=== PATIENT | female | born 1985 | race Hispanic/Latino ===

== ENCOUNTER 2024-12-27 15:13 | Emergency (ER) | payer OTHER ==
[2024-12-27 16:01] LABS: Absolute Lymphocytes (CBC) 1.1 K/uL (0.7-4.9); Hematocrit 37.7 % (36.0-45.0); Hemoglobin 12.5 g/dL (12.0-15.0); MCH 31.2 pg (27.0-35.0); MCHC 33.3 g/dL (32.0-36.0); MCV 93.7 fL (80-100); MPV 9.1 fL (7.6-11.3); Nucleated RBC Absolute Count 0.0 (0-0); Nucleated Red Blood Cells % 0.2 % (0-0); RBC Red Blood Cell Count 4.02 M/uL (3.86-4.86); White Blood Count 6.10 thou/uL (4.3-10.9)
[2024-12-27 16:05] LABS: Urine Culture Reflex Order REFLEXED; Urine Microscopic Reflex YN ORDER UMIC
[2024-12-27 16:21] LABS: ALT/SGPT 32 U/L (13-56); AST/SGOT 17 U/L (15-37); Albumin 3.4 g/dL (3.4-5.0); Albumin/Globulin Ratio 0.7 (1.1-1.8); Alkaline Phosphatase 97 U/L (45-117); Anion Gap 6.6 mEq/L (5.0-15.0); BUN Blood Urea Nitrogen 10 mg/dL (7-18); Globulin 4.6 g/dL (2.3-3.5); Glucose Level 91 mg/dL (74-106); Potassium 3.6 mEq/L (3.5-5.1)
--- NOTE | 2024-12-27 16:22 | RAD REPORT ---
EXAM: CT brain without contrast HISTORY: WEAKNESS COMPARISON: None TECHNIQUE: Multiple contiguous axial images were obtained and a CT of the brain without contrast. Sag ittal and coronal reformats were performed. One or more of the following dose reduction techniques were used: Automated exposure control, adjust ment of the mA and/or kV according to patient size, and/or iterative reconstruction. FINDINGS: No evidence of hydrocephalus, intracranial hemorrhage, or extra-axial fluid collection. The brain is normal in morphology. No evidence of midline shift or areas of brain edema. The calvarium is intact. The visualized paranasal sinuses and mastoid air cells are essentially clear . IMPRESSION: No evidence of acute intracranial abnormality.
[2024-12-27] MEDS ORDERED: NA CHLORIDE 0.9% 1,000 ML ONE (16:25)
[2024-12-27 16:28] LABS: Troponin High Sensitivity < 3.0 pg/mL (<58.9)
--- NOTE | 2024-12-27 16:49 | RAD REPORT ---
EXAMINATION: ONE VIEW CHEST XR CLINICAL INDICATION: Left Arm Pain TECHNIQUE: Frontal chest projection is submitted. Examination is limited by patient positioning and t echnique. COMPARISON: No prior exam. FINDINGS: The lungs are well inflated and clear. The heart is upper limit of normal in size. No displaced fract ures identified. IMPRESSION: No acute intrathoracic abnormalities.
[2024-12-27] MEDS ORDERED: CEFTRIAXONE 1000 MG/VIAL ONE (17:13)
[2024-12-27] MEDS ORDERED: NA CHLORIDE 0.9% 50 ML ONE (17:14)
--- NOTE | 2024-12-27 17:40 | EDPHYS ---
Physician Documentation [facility] Name: Angelic Brown Age: 39 yrs Sex: Female : 1985 Arrival Date: 12/27/2024 Time: 15:13 Bed 19 Private MD: ED Physician Aurea Allen HPI: 12/27 18:20 This 39 yrs old Female presents to ER via Ambulatory with complaints of Arm dr5 Pain - left arm and hand pain. 18:20 Onset: The symptoms/episode began/occurred 2 week(s) ago. Patient is a 39-year-old dr5 female with history of depression coming in with 2 weeks of generalized pain, left arm pain, suprapubic abdominal pain, dysuria. Patient reports that she seen her regular doctor and had blood work completed and has appointment next week. Patient denies fever, numbness, tingling during initial exam.. Historical: - Allergies: 15:33 No Known Allergies; ap3 - Home Meds: 15:33 sertraline oral [Active]; ap3 - PMHx: 15:33 Depressive disorder; ap3 - Immunization history:: Adult Immunizations unknown. - Infectious Disease History:: Denies. - Social history:: Smoking status: Patient denies any tobacco usage or history of. Patient uses alcohol, occasionally. ROS: 18:20 Constitutional: as per hpi dr5 Exam: 18:20 Constitutional: This is a well developed, well nourished patient who is awake, alert, dr5 and in no acute distress. Head/Face: Normocephalic, atraumatic. Eyes: Pupils equal round and reactive to light, extra-ocular motions intact. Lids and lashes normal. Conjunctiva and sclera are non-icteric and not injected. Cornea within normal limits. Periorbital areas with no swelling, redness, or edema. Neck: Trachea midline, no thyromegaly or masses palpated, and no cervical lymphadenopathy. Supple, full range of motion without nuchal rigidity, or vertebral point tenderness. No Meningismus. Chest/axilla: Normal chest wall appearance and motion. Nontender with no deformity. No lesions are appreciated. Cardiovascular: Regular rate and rhythm with a normal S1 and S2. Normal PMI, no JVD. No pulse deficits. Respiratory: Lungs have equal breath sounds bilaterally, clear to auscultation. No rales, rhonchi or wheezes noted. No increased work of breathing, no retractions or nasal flaring. Back: No spinal tenderness. No costovertebral tenderness. Full range of motion. Skin: Warm, dry with normal turgor. Normal color with no rashes, no lesions, and no evidence of cellulitis. MS/ Extremity: Pulses equal, no cyanosis. Neurovascular intact. Full, normal range of motion. Neuro: Awake and alert, GCS 15, oriented to person, place, time, and situation. Cranial nerves II-XII grossly intact. Motor strength 5/5 in all extremities. Sensory grossly intact. Cerebellar exam normal. Normal gait. 18:20 Abdomen/GI: Inspection: abdomen appears normal, Bowel sounds: normal, Palpation: mild abdominal tenderness, in the suprapubic area, Vital Signs: 15:32 BP 150 / 82; Pulse 78; Resp 17; Temp 98.2; Pulse Ox 100% ; Weight 68.04 kg; Height 5 ap3 ft. 2 in. ; 16:02 BP 159 / 84; Pulse 76; Resp 16; Pulse Ox 98% ; dd2 17:00 BP 146 / 75; Pulse 75; Resp 16; Pulse Ox 99% on R/A; dd2 18:02 BP 142 / 77; Pulse 73; Resp 16; Pulse Ox 99% on R/A; dd2 15:32 Body Mass Index 27.44 (68.04 kg, 157.48 cm) ap3 NIH Stroke Scale Scores: 18:20 NIHSS Score: 0 dr5 [place] Coma Score: 15:58 Eye Response: spontaneous(4). Verbal Response: oriented(5). Motor Response: obeys dd2 commands(6). Total: 15. MDM: 15:16 Medical Screening Exam initiated dr5 18:20 Differential Diagnosis UTI, intracranial hemorrhage, anemia, acute kidney injury. Data dr5 reviewed: vital signs, nurses notes, lab test result(s), CBC, white blood cell count, hemoglobin, hematocrit, platelets, electrolytes, sodium, potassium, chloride, serum bicarbonate, BUN, creatinine, serum glucose, urinalysis, bacteruria, radiologic studies, CT scan. Data reviewed: radiologic studies, plain films. Consideration of Admission/Observation Escalation of care including admission/observation considered. Escalation considered patient found to have intracranial hemorrhage. I considered the following discharge prescriptions or medication management in the emergency department I discussed and recommended Over The Counter medications, Medications were administered in the Emergency Department. See MAR. Independent interpretation of the following test(s) in the Emergency Department X-Ray: My interpretation is Independent interpretation of x-ray does not reveal infiltrates concerning for pneumonia. Historians other than the Patient: Daughter/Son: Daughter. Family Member: Sister. Care significantly affected by the following chronic conditions: Depression. Care significantly affected by the following Social Determinants of Health: Poor access to healthcare and/or lack of insurance, Poor access to transportation, Problems related to employment. Counseling: I had a detailed discussion with the patient and/or guardian regarding the historical points, exam findings, and any diagnostic results supporting the discharge/admit diagnosis, the presence of at least one elevated blood pressure reading (>120/80) during this emergency department visit, lab results, radiology results, the need for outpatient follow up, for definitive care, a family practitioner, to return to the emergency department if symptoms worsen or persist or if there are any questions or concerns that arise at home. Medication response: Rocephin. Response to treatment: the patient's symptoms have markedly improved after treatment. Special discussion: I discussed with the patient/guardian in detail that at this point there is no indication for admission to the hospital. It is understood, however, that if the symptoms persist or worsen the patient needs to return immediately for re-evaluation. Based on the history and exam findings, there is no indication for further emergent testing or inpatient evaluation. I discussed with the patient/guardian the need to see the primary care provider for further evaluation of the symptoms. ED course: Rocephin IV given for urinary tract infection. All labs and CT scan results and chest x-ray printed so patient can take with her to her primary care doctor. Patient verbalized understanding and feels much better. Patient denies numbness or tingling at this time. All questions were answered. Strict ER precautions given. 12/27 15:32 Order name: CBC with Diff; Complete Time: 16:08 dr5 12/27 15: Order name: CMP; Complete Time: 16:48 dr5 12/27 15:32 Order name: UA Rfx Pedro Cult if indicated; Complete Time: 16:08 dr5 12/27 15:32 Order name: Troponin High Sensitivity; Complete Time: 16:48 dr5 12/27 15:32 Order name: Test, Urine; Complete Time: 16:08 dr5 12/27 16:08 Order name: Urine Culture EDMS 12/27 15:32 Order name: CT Head Brain wo Cont; Complete Time: 16:48 dr5 12/27 15:32 Order name: Chest Single View XRAY; Complete Time: 17:09 dr5 Administered Medications: 16:36 Drug: NS 0.9% IV 1000 ml IV at 1000 ml once; to be given as a bolus over 60 minutes dd2 Route: IV; Rate: 1000 ml; Site: right antecubital; 17:40 Follow up: IV Status: Completed infusion dd2 17:21 Drug: Rocephin IV 1 grams IV at per protocol once; Given slow IV push per pharmacy dd2 instructions Route: IV; Rate: per protocol; Site: right antecubital; 17:35 Follow up: IV Status: Completed infusion dd2 Disposition Summary: 12/27/24 17:40 Discharge Ordered Notes: Location: Home dr5 Condition: Stable dr5 Diagnosis - UTI/ Urinary tract infection, site not specified dr5 Followup: dr5 - With: Emergency Department - When: As needed - Reason: Worsening of condition Followup: dr5 - With: Private Physician - When: 1 - 2 days - Reason: Recheck today's complaints, Continuance of care, Re-evaluation by your physician Discharge Instructions: - Discharge Summary Sheet dr5 - Urinary Tract Infection, Adult, [id number] dr5 Forms: - Medication Reconciliation Form dr5 - Antibiotic Education dr5 - Patient Portal Instructions dr5 - Leadership Thank You Letter dr5 Prescriptions: - Cephalexin 500 mg Oral Capsule - take 1 capsule ORAL route every 12 hours for 10 days; 20 capsule; Refills: 0, dr5 Product Selection Permitted NIH Stroke Scale - NIH Stroke Score Date: 12/27/2024 Time: 18:20 Total Score = 0 1a. Level of Consciousness (LOC) - 0(Alert) 1b. Level of Consciousness (LOC) (Month \T\ Age) - 0(Both) 1c. LOC Commands (Open \T\ Closes Eyes/Construction Foreman) - 0(Both) 2. Best Gaze (Lateral Gaze Paresis) - 0(Normal) 3. Visual Field Loss - 0(No visual loss) 4. Facial Palsy - 0(Normal) 5a. Left Arm: Motor (10-second hold) - 0(No drift) 5b. Right Arm: Motor (10-second hold) - 0(No drift) 6a. Left Leg: Motor (5-second hold - always test supine) - 0(No drift) 6b. Right Leg: Motor (5-second hold - always test supine) - 0(No drift) 7. Limb Ataxia (finger/nose \T\ heel/birch - test with eyes open) - 0(Absent) 8. Sensory Loss (pinprick arms/legs/face) - 0(Normal) 9. Best Language: Aphasia (description/naming/reading) - 0(No aphasia) 10. Dysarthria (speech clarity - read or repeat words) - 0(Normal) 11. Extinction and Inattention (visual/tactile/auditory/spatial/personal) - 0(No abnormality) Initials: dr5 Signatures: Dispatcher [employer] EDYoko Lopez RN RN ap3 ALLI WAGNER RN RN dd2 Amarjit Urbano, MACHINE ERECTOR-C MACHINE ERECTOR-Cdr5 Corrections: (The following items were deleted from the chart) 15:33 15:32 CBC+H.LAB.BRZ ordered. EDMS EDMS 15:33 15:32 COMPREHENSIVE METABOLIC PANEL+C.LAB.BRZ ordered. EDMS EDMS 15:33 15:32 UA Rfx Pedro Cult if indicated+U.LAB.BRZ ordered. EDMS EDMS 15:33 15:32 Troponin High Sensitivity+C.LAB.BRZ ordered. EDMS EDMS 15:33 15:32 Test, Urine+UC.LAB.BRZ ordered. EDMS EDMS
--- NOTE | 2024-12-27 17:40 | ER ---
Nurse's Notes [facility] Name: Angelic Brown Age: 39 yrs Sex: Female : 1985 Arrival Date: 12/27/2024 Time: 15:13 Bed 19 Private MD: Diagnosis: UTI/ Urinary tract infection, site not specified Presentation: 12/27 15:32 Chief complaint: Patient states: she has been having left arm and hand pain that also ap3 "moves around her whole body to different places" for the last two weeks. Coronavirus screen: At this time, the client does not indicate any symptoms associated with coronavirus-19. Ebola Screen: No symptoms or risks identified at this time. Initial Sepsis Screen: Does the patient meet any 2 criteria? No. Patient's initial sepsis screen is negative. Does the patient have a suspected source of infection? No. Patient's initial sepsis screen is negative. Risk Assessment: Do you want to hurt yourself or someone else? Patient reports no desire to harm self or others. Onset of symptoms is unknown. 15:32 Method Of Arrival: Ambulatory ap3 15:32 Acuity: VASYL 3 ap3 Triage Assessment: 15:34 General: Appears in no apparent distress. Behavior is calm, cooperative, appropriate ap3 for age. Pain: Complains of pain in left hand and left arm. Neuro: Level of Consciousness is awake, alert, obeys commands, Oriented to person, place, time, situation, Appropriate for age Gait is steady, Speech is normal, Facial symmetry appears normal. Cardiovascular: Patient's skin is warm and dry. Respiratory: Airway is patent Respiratory effort is even, unlabored, Respiratory pattern is regular, symmetrical. Historical: - Allergies: 15:33 No Known Allergies; ap3 - Home Meds: 15:33 sertraline oral [Active]; ap3 - PMHx: 15:33 Depressive disorder; ap3 - Immunization history:: Adult Immunizations unknown. - Infectious Disease History:: Denies. - Social history:: Smoking status: Patient denies any tobacco usage or history of. Patient uses alcohol, occasionally. Screenin:35 Abuse screen: Denies threats or abuse. Nutritional screening: No deficits noted. ap3 Tuberculosis screening: No symptoms or risk factors identified. 15:58 [facility] ED Fall Risk Assessment (Adult) History of falling in the last 3 months, dd2 including since admission No falls in past 3 months (0 pts) Confusion or Disorientation No (0 pts) Intoxicated or Sedated No (0 pts) Impaired Gait No (0 pts) Mobility Assist Device Used No (0 pt) Altered Elimination No (0 pt) Score/Fall Risk Level 0 - 2 = Low Risk Oriented to surroundings, Maintained a safe environment, Educated pt \\T\\ family on fall prevention, incl call for assistance when getting out of bed, Assessed \\T\\ reinforced patient's understanding of fall precautions, Hourly rounding (assess needs \\T\\ fall precautionary measures) done. Assessment: 15:58 General: Appears in no apparent distress. uncomfortable, Behavior is calm, cooperative, dd2 appropriate for age. Pain: Complains of pain in left arm and left hand Pain currently is 6 out of 10 on a pain scale. Neuro: Level of Consciousness is awake, alert, obeys commands, Oriented to person, place, time, situation, Appropriate for age Reports blurred vision since X 2 WEEKS dizziness. Cardiovascular: No deficits noted. Respiratory: No deficits noted. GI: No deficits noted. No signs and/or symptoms were reported involving the gastrointestinal system. : Urine is cloudy, Reports burning with urination, pain in suprapubic area in lower back. EENT: No deficits noted. No signs and/or symptoms were reported regarding the EENT system. Derm: No deficits noted. No signs and/or symptoms reported regarding the dermatologic system. Musculoskeletal: No deficits noted. No signs and/or symptoms reported regarding the musculoskeletal system. Circulation, motion, and sensation intact. Range of motion: intact in all extremities. Vital Signs: 15:32 BP 150 / 82; Pulse 78; Resp 17; Temp 98.2; Pulse Ox 100% ; Weight 68.04 kg; Height 5 ap3 ft. 2 in. ; 16:02 BP 159 / 84; Pulse 76; Resp 16; Pulse Ox 98% ; dd2 17:00 BP 146 / 75; Pulse 75; Resp 16; Pulse Ox 99% on R/A; dd2 18:02 BP 142 / 77; Pulse 73; Resp 16; Pulse Ox 99% on R/A; dd2 15:32 Body Mass Index 27.44 (68.04 kg, 157.48 cm) ap3 [place] Coma Score: 15:58 Eye Response: spontaneous(4). Verbal Response: oriented(5). Motor Response: obeys dd2 commands(6). Total: 15. NIH Stroke Scale Scores: 18:20 NIHSS Score: 0 dr5 ED Course: 15:15 Patient arrived in ED. mr 15:15 Amarjit Urbano, ANJELICA[facility]C [facility] dr5 15:15 Aurea Allen MD is Attending Physician. dr5 15:33 Triage completed. ap3 15:35 Arm band placed on right wrist. ap3 15:58 Patient has correct armband on for positive identification. Bed in low position. Call dd2 light in reach. Side rails up X 1. Client placed on continuous cardiac and pulse oximetry monitoring. NIBP monitoring applied. Door closed. Noise minimized. Warm blanket given. Pillow given. Verbal reassurance given. 15:58 No provider procedures requiring assistance completed. Initial lab(s) drawn, by me, dd2 sent to lab. Urine collected: clean catch specimen, cloudy. Inserted saline lock: 20 gauge in right antecubital area, using aseptic technique. Blood collected. Flushed with 10 mL NS. Patient maintains SpO2 saturation greater than 95% on room air. 16:15 CT Head Brain wo Cont In Process Unspecified. EDMS 16:46 Chest Single View XRAY In Process Unspecified. EDMS 18:02 Provided Education on: d/c education. dd2 18:02 IV discontinued, intact, bleeding controlled, No redness/swelling at site. Pressure dd2 dressing applied. Administered Medications: 16:36 Drug: NS 0.9% IV 1000 ml IV at 1000 ml once; to be given as a bolus over 60 minutes dd2 Route: IV; Rate: 1000 ml; Site: right antecubital; 17:40 Follow up: IV Status: Completed infusion dd2 17:21 Drug: Rocephin IV 1 grams IV at per protocol once; Given slow IV push per pharmacy dd2 instructions Route: IV; Rate: per protocol; Site: right antecubital; 17:35 Follow up: IV Status: Completed infusion dd2 Medication: 15:58 VIS not applicable for this client. dd2 Outcome: 17:40 Discharge ordered by . dr5 18:02 Discharged to home ambulatory, dd2 18:02 Condition: stable 18:02 Discharge instructions given to patient, Instructed on discharge instructions, follow up and referral plans. medication usage, Demonstrated understanding of instructions, follow-up care, medications, Prescriptions given X 1, 18:23 Patient left the ED. dd2 NIH Stroke Scale - NIH Stroke Score Date: 12/27/2024 Time: 18:20 Total Score = 0 1a. Level of Consciousness (LOC) - 0(Alert) 1b. Level of Consciousness (LOC) (Month \\T\\ Age) - 0(Both) 1c. LOC Commands (Open \\T\\ Closes Eyes/Emt Dispatcher) - 0(Both) 2. Best Gaze (Lateral Gaze Paresis) - 0(Normal) 3. Visual Field Loss - 0(No visual loss) 4. Facial Palsy - 0(Normal) 5a. Left Arm: Motor (10-second hold) - 0(No drift) 5b. Right Arm: Motor (10-second hold) - 0(No drift) 6a. Left Leg: Motor (5-second hold - always test supine) - 0(No drift) 6b. Right Leg: Motor (5-second hold - always test supine) - 0(No drift) 7. Limb Ataxia (finger/nose \\T\\ heel/birch - test with eyes open) - 0(Absent) 8. Sensory Loss (pinprick arms/legs/face) - 0(Normal) 9. Best Language: Aphasia (description/naming/reading) - 0(No aphasia) 10. Dysarthria (speech clarity - read or repeat words) - 0(Normal) 11. Extinction and Inattention (visual/tactile/auditory/spatial/personal) - 0(No abnormality) Initials: dr5 Signatures: Dispatcher [employer] EDMI Doris Varma, Yoko Mariscal RN RN ap3 ALLI WAGNER RN RN dd2 Amarjit Urbano, LABORER LANDSCAPE-C LABORER LANDSCAPE-Cdr5 Corrections: (The following items were deleted from the chart) 15:34 15:32 BP 150 / 52; Pulse 78bpm; Resp 17bpm; Pulse Ox 100%; Temp 98.2F; 68.04 ap3 kg; Height 5 ft. 2 in.; BMI: 27.4; ap3
[2024-12-27 18:28] VITALS: TEMP 98.2
[2024-12-27 18:30] VITALS: O2SAT 99
[2024-12-27 18:31] VITALS: BP 142/77
== END 2024-12-27 18:23 | disposition home or self-care (01) ==
LOC: ER 15:13
DX: N39.0 Urinary tract infection, site not specified (principal); M79.602 Pain in left arm; F32.A Depression, unspecified
CPT/HCPCS: 96361; 87088; 85025; 81001; 87086; 36415; 81025; 84484; 80053; 70450; 71045; 96374; 99284; J7030; J0696